=== PATIENT | female | born 1975 | race Two or more races ===

== ENCOUNTER → 2024-09-22 | Outpatient (CLI) | payer BC, SELFPAY ==
[2024-09-22 12:43] LABS: Misc Send Out* See Sep Rpt
[2024-09-22 13:18] LABS: Basophils # (Auto) 0.1 Thou/mm3 (0.0-0.2); Basophils % (Auto) 1 % (0-2.5); Eosinophils # (Auto) 0.2 Thou/mm3 (0.0-0.5); Eosinophils % (Auto) 3 % (0-10); Hemoglobin 14.9 g/dL (12.0-16.0); Immature Granulocytes % (Auto) 0 % (0-0); Immature Granulocytes Auto 0.02 Thou/mm3 (0.00-0.00); Lymphocytes # (Auto) 3.1 Thou/mm3 (1.0-4.8); Lymphocytes % (Auto) 39 % (10-50); Mean Corpuscular HGB Conc 37.3 g/dl (31.0-37.0); Mean Corpuscular Hemoglobin 30.9 pg (25.0-35.0); Mean Corpuscular Volume 83 fL (80-100); Monocytes # (Auto) 0.5 Thou/mm3 (0.0-0.8); Monocytes % (Auto) 7 % (0-12); Neutrophils % (Auto) 51 % (37-80); Nucleated Red Blood Cell % 0 /100 WBC (0); Platelet Count 253 Thou/mm3 (140-440); RDW Standard Deviation 37.3 fL (36.4-46.3); Red Blood Count 4.82 Miln/mm3 (4.00-5.20); White Blood Count 7.9 Thou/mm3 (3.6-11.0)
[2024-09-22 13:26] LABS: Alanine Aminotransferase 26 U/L (10-49); Albumin, Serum 4.6 gm/dL (3.5-5.0); Albumin/Globulin Ratio 1.7 (1.2-2.2); Alkaline Phosphatase 102 U/L (46-116); Anion Gap 11 (7-16); Aspartate Amino Transferase 17 U/L (0-34); BUN/Creatinine Ratio 10 Ratio (12-20); Bilirubin,Total 0.8 mg/dL (0.3-1.2); Blood Urea Nitrogen 9 mg/dL (9-23); Calcium 9.5 mg/dL (8.3-10.6); Calcium (Corrected) 9.5 mg/dL (8.5-10.1); Carbon Dioxide 25.9 mMol/L (20.0-31.0); Chloride 106 mMol/L (98-107); Creatinine (Component) 0.9 mg/dL (0.6-1.3); Globulin 2.7 gm/dL (2.3-3.5); Glucose 144 mg/dL (74-106); Osmolality,Calculated 286 (275-295); Potassium 3.8 mMol/L (3.4-5.1); Sodium 143 mMol/L (136-145); Total Protein 7.3 gm/dL (5.7-8.2); eGFR > 60 See Note
[2024-09-22 13:46] LABS: Sed Rate (ESR) 1 mm/hr (0-20)
[2024-10-03 07:06] LABS: Immunoglobulin A 279 mg/dL (47-310); hs-CRP* 2.3 mg/L; tTG Ab, IgA <1.0 U/mL
== END | disposition home or self-care (01) ==
LOC: COPL 12:08
PROVIDERS: PCP Family Medicine; Referring Provider Specialist; Visit Provider Specialist
DX: R10.9 Unspecified abdominal pain (principal)
CPT/HCPCS: 36415; 80053; 82784; 85025; 85652; 86141; 86364

== ENCOUNTER → 2024-09-26 | Outpatient (CLI) | payer BC, SELFPAY ==
--- NOTE | 2024-09-26 14:00 | XR_ITS ---
Examination: Abdomen sonogram, complete Date and time of exam: September 26, 2024 1413 hours INDICATIONS: Upper abdominal pain nausea and diarrhea intermittent beginning 2 years ago. Technique: Multiple real-time grayscale transabdominal sonographic images of the abdomen have been obtained. Findings: Normal gallbladder Normal common bile duct 0.3 cm Pancreatic head 2.2 cm Aorta not enlarged Liver 18.4 cm fatty infiltration no focal liver lesions Normal hepatopedal portal venous flow Patent IVC Right kidney 10.8 cm cortex 1.1 cm Minimal calyceal dilatation Left kidney 10.6 cm renal cortex 2.5 cm Spleen 10.2 cm IMPRESSION: Normal gallbladder Hepatomegaly with fatty infiltration Minimal dilatation calyces right kidney, clinical correlation advised
[2024-10-03 07:07] LABS: Calprotectin, Stool* 66 mcg/g
== END | disposition home or self-care (01) ==
LOC: CDIM 14:06 → SLDO 14:13
PROVIDERS: PCP Specialist; Referring Provider Specialist; Visit Provider Radiology Diagnostic Radiology
DX: K76.0 Fatty (change of) liver, not elsewhere classified (principal); N28.89 Other specified disorders of kidney and ureter; R10.9 Unspecified abdominal pain
CPT/HCPCS: 76700; 83993

== ENCOUNTER 2024-10-26 08:05 | Day surgery (SDC) | payer BC, SELFPAY ==
[2024-10-25 10:42] LABS: HCG Qualitative,Urine Negative
[2024-10-25 11:02] VITALS: BMI 27.6
[2024-10-26] VITALS (10 sets, daily range): BP systolic 113–145; BP diastolic 75–93; PULSE 82–91; RESP 14–20; TEMP 36.2–36.5; O2SAT 95–100; BMI 31.1
[2024-10-26] MEDS: SODIUM CHLORIDE 0.9% 500 ML 500 ML 20 ML IV (09:34)
[2024-10-26] MEDS: DiphenhydrAMINE INJ 50 MG/ML VIAL 25 MG IVP (09:39)
[2024-10-26] MEDS: fentaNYL CIT INJ 50 mCg/ML AMP 2ML (ASD USE ONLY) IVP (09:41)
[2024-10-26] MEDS: MIDAZOLAM INJ 1 MG/ML VIAL 2 ML (ASD USE ONLY) 2 MG IVP (09:43)
== END 2024-10-26 10:50 | disposition home or self-care (01) ==
PROVIDERS: PCP Physician Assistant; Referring Provider Specialist; Visit Provider Specialist
PROC: (CPT 43239; principal; 2024-10-26 09:00)
DX: K31.A0 Gastric intestinal metaplasia, unspecified (principal); K31.89 Other diseases of stomach and duodenum; K29.50 Unspecified chronic gastritis without bleeding; K20.80 Other esophagitis without bleeding; K20.90 Esophagitis, unspecified without bleeding; K29.70 Gastritis, unspecified, without bleeding
CPT/HCPCS: 43239; 81025; J1200; J2250; J3010; J7040

== ENCOUNTER 2024-12-05 12:15 | Day surgery (SDC) | payer BC, SELFPAY ==
[2024-12-02 16:45] LABS: HCG Qualitative,Urine Negative
[2024-12-05] VITALS (8 sets, daily range): BP systolic 103–138; BP diastolic 67–93; PULSE 69–80; RESP 17–25; TEMP 36.6; O2SAT 94–100; BMI 29.9
[2024-12-05] MEDS: SODIUM CHLORIDE 0.9% 500 ML 500 ML 20 ML IV (13:57)
[2024-12-05] MEDS: MIDAZOLAM INJ 1 MG/ML VIAL 2 ML (ASD USE ONLY) 2 MG IVP (13:59)
[2024-12-05] MEDS: fentaNYL CIT INJ 50 mCg/ML AMP 2ML (ASD USE ONLY) IVP (14:01)
== END 2024-12-05 14:52 | disposition home or self-care (01) ==
PROVIDERS: PCP Family Medicine; Referring Provider Specialist; Visit Provider Specialist
PROC: 0DBE8ZX Excision of Large Intestine, Via Natural or Artificial Opening Endoscopic, Diagnostic (ICD-10-PCS; CPT 45380; principal; 2024-12-05 12:15)
DX: K52.9 Noninfective gastroenteritis and colitis, unspecified (principal); K63.89 Other specified diseases of intestine; K62.89 Other specified diseases of anus and rectum; K64.9 Unspecified hemorrhoids
CPT/HCPCS: 45380; 81025; J1200; J2250; J3010; J7999